=== PATIENT | female | born 1945 | race Caucasian/White ===

== ENCOUNTER → 2023-10-09 09:29 | Outpatient (REF) | payer OTHER, SELFPAY | LOC: RAD 09:29 | PROVIDERS: ATTENDING PHYSICIAN Family Medicine | DX: M25.562 Pain in left knee (principal) | CPT/HCPCS: 73564 ==

== ENCOUNTER 2025-03-19 12:25 | Emergency (ER) | payer OTHER, SELFPAY ==
[2025-03-19] VITALS (8 sets, daily range): BP systolic 165–187; BP diastolic 65–93
[2025-03-19 12:45] LABS: Hematocrit 39.7 % (37.0-47.0); Hemoglobin 12.7 g/dL (12.0-16.0); Mean Corp Hgb Conc. 32.0 g/dL (33.0-37.0); Mean Corpuscular Volume 87.3 fL (81.0-99.0); Nucleated Red Blood Cells % 0 %; Platelet Count 208 10^3/uL (130-400); Red Cell Dist. Width 13.3 % (11.5-14.5)
[2025-03-19 13:14] LABS: ALT (SGPT) 23 U/L (0-35); AST (SGOT) 30 U/L (14-36); Albumin 4.2 g/dl (3.5-5.0); Alkaline Phosphatase 103 U/L (38-126); Blood Urea Nitrogen 17 mg/dl (7-17); Calcium 9.3 mg/dl (8.4-10.2); Carbon Dioxide 26 mmol/L (22-30); Chloride 108 mmol/L (98-107); Glucose 95 mg/dl (70-99); Potassium 3.8 mmol/L (3.5-5.1); Sodium 141 mmol/L (135-145); Total Protein 7.2 g/dl (6.3-8.2); eGFR > 60.00
[2025-03-19 13:36] LABS: Troponin I 0.035 ng/ml
[2025-03-19] MEDS: NSS 500 IV (15:11)
--- NOTE | 2025-03-19 16:00 | ED.GENMED ---
History of Present Illness
<Stephenie Resendiz PA-C - Last Filed: 03/20/25 07:01>
General
Chief Complaint: Chest Pain
Source: patient
Exam Limitations: none
Time Seen by Provider: 03/19/25 14:03
Nursing documentation reviewed up to this point in time: agreed with
History of Present Illness
History of Present Illness:
Patient is an 79-year-old female with history hypertension, hyperlipidemia who presents to the emergency department for left scapular pain. Patient reports chronic left shoulder pain secondary to frozen shoulder/adhesive capsulitis. Over the past
4 weeks she has noticed increasing pain into her left scapular region and more recently into her left neck. She also has had intermittent pain in her left ear.
She was seen in urgent care facility earlier this week where a shoulder x-ray was performed which showed right no acute findings. However that she be concerned that this pain she is experiencing may be related to her heart prompting visit to the
emergency department today.
She denies any chest pain or shortness of breath. No exertional, pleuritic, or positional component to scapular pain. No associated lightheadedness, dizziness, diaphoresis
Patient has no known history of CAD. She does have a family history of cardiac problems.
She is not on any oral anticoagulation
Past History
<Stephenie Resendiz PA-C - Last Filed: 03/20/25 07:01>
Past History
ED Past Medical History: HTN and Hypercholesterolemia
ED Past Surgical History: and Gynecological (Hysterectomy)
Social History
Tobacco: Non-smoker
Alcohol: Occasional
Drug: None
Personal:
Living: with family
Review of Systems
<Stephenie Resendiz PA-C - Last Filed: 03/20/25 07:01>
Review of Systems
Allergies reviewed?: Yes
All Other Systems: ROS reviewed and negative except as documented in HPI and ROS
Phy Exam
<Stephenie Resendiz PA-C - Last Filed: 03/20/25 07:01>
Physical Exam
Physical Exam:
Vitals: Hypertensive, otherwise vital signs able. Afebrile
General: Patient is well appearing, no acute distress. Nontoxic appearing
Skin: Warm and dry, no rashes or lesions
Head: Normocephalic, atraumatic
Eyes: Sclera nonicteric. EOMs intact. No nystagmus.
Throat: Protecting airway
Neck: Normal ROM, no cervical spine tenderness, no meningismus
Cardiac: Regular rate and rhythm, no murmurs. 2+ palpable radial pulses bilaterally. No reproducible chest wall tenderness.
Pulm: Normal respiratory effort, no wheezes, rales, rhonchi heard on exam
Abdomen: Abdomen soft and nontender.
Extremities: No edema, erythema, or obvious deformity of left shoulder. Limited range of motion in left shoulder. Reproducible tenderness in left scapular region. No rash. 2+ palpable left radial and brachial pulses with normal capillary refill.
Neuro: AAOx3. Grossly intact.
Psychiatric: Normal affect.
Scores
<Stephenie Resendiz PA-C - Last Filed: 03/20/25 07:01>
Heart Score for Chest Pain Patients
STEMI patient?: Not applicable
Course
<Stephenie Resendiz PA-C - Last Filed: 03/20/25 07:01>
Orders/Labs/Results
Orders:
Orders
03/19/25 12:26
EKG [Electrocardiogram (*1)] Urgent
Reason for Study: Chest Pain
EKG- Treatment ONCE
03/19/25 12:39
Complete Blood Count/With Diff Urgent
Comprehensive Metabolic Panel Urgent
Troponin I Urgent
03/19/25 14:33
CT Chest/abd/pelvis Angio W/wo Urgent
Comment: discussed w/ attending
Reason For Exam: Left scapular pain; elevated trop
03/19/25 14:34
0.9% Sodium Chloride 500 ml [Nss] 500 ml IV BOLUS
03/19/25 15:40
Electrocardiogram (*1) Urgent
Reason for Study: Chest Pain
EKG- Treatment ONCE
03/19/25 16:14
Troponin I Urgent
03/19/25 17:40
Oxycodone [Roxicodone] 5 mg PO NOW STA
Abnormal Lab Results
03/19/25
12:39
MCHC 32.0 L g/dL
(33.0-37.0)
MPV 10.5 H fL
(7.4-10.4)
Chloride 108 H mmol/L
(98-107)
Troponin I 0.035 H* ng/ml
03/19/25 12:39
03/19/25 12:39
Vital Signs
Initial and Last Documented VS:
Initial Vital Signs
Temp Pulse Resp BP Pulse Ox
98.0 F 88 19 184/93 96
03/19/25 12:30 03/19/25 12:30 03/19/25 12:30 03/19/25 12:30 03/19/25 12:30
Last Documented Vital Signs
Temp Pulse Resp BP Pulse Ox
97.5 F 82 20 165/81 96
03/19/25 17:55 03/19/25 17:55 03/19/25 17:55 03/19/25 17:55 03/19/25 17:55
<Willian Barr DO - Last Filed: 03/19/25 17:55>
Orders/Labs/Results
Orders:
Orders
03/19/25 12:26
EKG [Electrocardiogram (*1)] Urgent
Reason for Study: Chest Pain
EKG- Treatment ONCE
03/19/25 12:39
Complete Blood Count/With Diff Urgent
Comprehensive Metabolic Panel Urgent
Troponin I Urgent
03/19/25 14:33
CT Chest/abd/pelvis Angio W/wo Urgent
Comment: discussed w/ attending
Reason For Exam: Left scapular pain; elevated trop
03/19/25 14:34
0.9% Sodium Chloride 500 ml [Nss] 500 ml IV BOLUS
03/19/25 15:40
Electrocardiogram (*1) Urgent
Reason for Study: Chest Pain
EKG- Treatment ONCE
03/19/25 16:14
Troponin I Urgent
03/19/25 17:40
Oxycodone [Roxicodone] 5 mg PO NOW STA
Abnormal Lab Results
03/19/25
12:39
MCHC 32.0 L g/dL
(33.0-37.0)
MPV 10.5 H fL
(7.4-10.4)
Chloride 108 H mmol/L
(98-107)
Troponin I 0.035 H* ng/ml
03/19/25 12:39
03/19/25 12:39
Vital Signs
Initial and Last Documented VS:
Initial Vital Signs
Temp Pulse Resp BP Pulse Ox
98.0 F 88 19 184/93 96
03/19/25 12:30 03/19/25 12:30 03/19/25 12:30 03/19/25 12:30 03/19/25 12:30
Last Documented Vital Signs
Temp Pulse Resp BP Pulse Ox
97.5 F 82 20 165/81 96
03/19/25 17:55 03/19/25 17:55 03/19/25 17:55 03/19/25 17:55 03/19/25 17:55
<Stephenie Resendiz PA-C - Last Filed: 03/20/25 07:01>
MDM/Problems Addressed
Differential Diagnosis Includes:
Not limited to: Frozen shoulder/adhesive capsulitis, acute coronary syndrome, pulmonary embolism, aortic dissection, muscular strain, etc.
MDM/Problems Addressed:
79-year-old female with a history of adhesive capsulitis of the left shoulder presents with acute on chronic left scapular pain radiating into the left side of the neck, ongoing for the past few weeks. Pain is not exertional, pleuritic, or
positional. No associated shortness of breath, chest pain, or known history of coronary artery disease.
On evaluation, vital signs are stable and physical exam is unremarkable. CBC and chemistry panels are within normal limits. Initial troponin was mildly elevated at 0.035 ng/mL. EKG showed normal sinus rhythm without evidence of acute ischemia or
arrhythmia. Given her age and atypical symptoms, a CTA dissection study was obtained and showed no acute pathology of the chest, abdomen, or pelvis.
Repeat troponin showed a slight decrease and is now within the upper limit of normal. Serial EKGs remained without acute changes. At no point did the patient develop chest pain or other concerning symptoms.
Given the atypical nature of her pain, the absence of associated symptoms, stable cardiac markers, and unremarkable imaging, suspicion for an acute cardiac process such as ACS is low. Symptoms are more consistent with musculoskeletal pain related to
chronic left shoulder pathology.
Patient remained clinically stable throughout her ED stay. She is felt to be safe for discharge with close outpatient follow-up. Will place her on the chest pain hotline to expedite cardiology evaluation. Strict return precautions were discussed in
detail. Patient evaluated with and case discussed with attending physician.
Chronic conditions affecting care:
Hypertension, hyperlipidemia
Acute Exacerbation and/or Progression of Chronic Illness:
Acutely hypertensive
<Stephenie Resendiz PA-C - Last Filed: 03/20/25 07:01>
*Radiology
Radiology exam reviewed: radiology read reviewed
*Pulse Oximetry
SaO2: 95
Oxygen Mode of Delivery: Room air
Patient hypoxic: no
*EKG
Interpreted by ED Provider?: Yes
EKG Intrepretation Date: 03/19/25
Interpretation: abnormal
Comparison EKG: no comparison EKG present
Heart Rate: 88
Rate: normal
Rhythm: sinus
[place]: normal axis
Interval: normal QT interval
QRS Pattern: normal QRS
Ischemia: no ischemia
*Program Scheduler Interpretation
Rate: normal
Interpretation: normal
Heart Rate: 88
Rhythm: sinus
*Critical Care Note
Total Time (30-74mins, 75-104mins- exclusive of procedures): Not Applicable
ED Attending Note
<Stephenie Resendiz PA-C - Last Filed: 03/20/25 07:01>
-
Portions of this chart may have been created with voice recognition software.� Occasional wrong word or��sound alike� substitutions may have occurred due to the inherent limitations of voice recognition software.
<Willian Barr DO - Last Filed: 03/19/25 17:55>
ED Attending Note
Patient seen and examined by attending physician: Yes
I performed the substantive portion of visit, reviewed & personally made and approve the management plan that is documented in note by myself or FERNANDA.: Yes
ED Attending Note:
I agree with Pamela's note
Patient presents complaining of left shoulder pain. Pain radiates to her neck at times. No shortness of breath. Patient states she has a history of adhesive capsulitis. She feels like the pain is increasing over time. She has an appoint with
Dr. Dyer coming up in about 10 days but that like she could not wait until then for pain control. No exertional component to her discomfort
General: Awake, Alert, Oriented X3. No acute distress.
Vitals: unremarkable
Head: Atraumatic
Eyes: Pupils equal, EOMI
Throat: Airway intact, no exudates
Neck: Trachea midline
Lungs: Clear and equal b/l
Heart: Regular rate, no murmurs
Abd: Soft, Nontender, No pulsatile mass
Neuro: Nonfocal
Skin: Warm, dry, no rash
Extremities: pulses equal b/l, no edema. Pain to palpation over the left shoulder. Pain with range of motion of the left shoulder
EKG shows no acute ischemic changes
First troponin is the slightest amount above the normal limit. Repeat troponin is lower but essentially unchanged. Her symptoms are very atypical. No ischemic changes on EKG. I think this is her baseline troponin. CT of the chest shows no
dissection or. 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 Will put her on the chest pain hotline but I do not believe she would benefit from hospitalization at this point.
Discharge Plan
Departure
Patient Disposition: Home (Routine Discharge)
Date of Disposition: 03/19/25
Time of Disposition: 17:34
Patient with high blood pressure during this ER visit?: Yes
Condition: Good
Discharge Problem:
Pain of left scapula, Chronic left shoulder pain
Instructions: Shoulder pain - ED (DC), Chest Pain DCA Follow Up, BLOOD PRESSURE
Prescriptions:
New
oxycodone 5 mg tablet
5 mg PO Q6H PRN (Reason: Pain) Qty: 10 0RF
No Action
meclizine 25 MG tablet
25 mg PO QIDPRN PRN (Reason: dizziness or nausea) Qty: 20 0RF
aspirin 81 mg Tablet,Delayed Release (Dr/Ec)
81 mg PO DAILY
lisinopril 10 mg Tablet
10 mg PO DAILY
Referrals:
Que Dyer MD [Active, Orthopedics] - Keep scheduled appt
Frances You MD [Family Provider, Family Practice]
Activity Restrictions/Additional Instructions:
RETURN TO THE EMERGENCY DEPARTMENT ANY INTRACTABLE PAIN, NUMBNESS/TINGLING IN LEFT UPPER EXTREMITY, CHEST PAIN, SHORTNESS OF BREATH/DIFFICULTY BREATHING, SEVERE BACK PAIN, WORSENING IN CURRENT SYMPTOMS, OR ANY OTHER CONCERNS
- As discussed�your EKGs showed no evidence of acute ischemia today in the emergency department. Your troponin value did trend down.
- The CT scan showed no acute abnormality in the chest, abdomen, or pelvis. You were noted to have a few lesions on your thyroid which should be followed up outpatient with an ultrasound. You were also found to have a small lesion on your left
kidney. You may require an outpatient MRI. Please follow these up with your primary care for further evaluation.
- We suspect that you are experiencing following your known frozen shoulder/adhesive capsulitis.
- However�please follow-up with cardiology closely for further evaluation/management to rule out any potential cardiac etiology. Contact information has been provided for you above.
- Continue to take Tylenol and/or Motrin as needed for pain. Prescription for oxycodone has been sent to your pharmacy which you can take for intractable pain. This may cause drowsiness you should not take prior to driving.
- Follow-up with orthopedics as scheduled
Monitor your symptoms closely and return to the emergency department with any acute worsening/new symptoms or any other concerns
Interventions
Interventions:
*Risk Screen - Suicide Last Done: 03/19/25 12:32
*General Assessment Last Done: 03/19/25 14:09
*Neglect/Abuse Screening Last Done: 03/19/25 12:32
*ED- Fall Risk Assessment Last Done: 03/19/25 14:09
*ED COVID-19 Vaccine History Last Done: 03/19/25 14:09
*ED Influenza Vaccine History Last Done: 03/19/25 14:09
*Nursing Disposition Last Done: 03/19/25 17:55
ED- Cardiac Assessment Last Done: 03/19/25 14:09
Discharge Date and Time
Discharge Date/Time: 03/19/25 18:08
Print Language: BAHAMIAN
[2025-03-19 16:50] LABS: Troponin I 0.027 ng/ml
[2025-03-19] MEDS: ROXICODONE 5 MG PO (17:56)
== END 2025-03-19 18:08 | disposition home or self-care (01) ==
LOC: EMR 12:25
PROVIDERS: Physician Assistant; Student in an Organized Health Care Education/Training Program; EMERGENCY PHYSICIAN Emergency Medicine; FAMILY PHYSICIAN Family Medicine
DX: G89.29 Other chronic pain (principal); M25.512 Pain in left shoulder; R07.89 Other chest pain; I10 Essential (primary) hypertension; E78.00 Pure hypercholesterolemia, unspecified; I44.0 Atrioventricular block, first degree; Z90.710 Acquired absence of both cervix and uterus
CPT/HCPCS: 99284; 96360; 71275; 74174; 80053; 84484; 85025; 93005; Q9967

== ENCOUNTER → 2025-03-29 06:53 | Outpatient (REF) | payer OTHER, SELFPAY | LOC: RCS 06:53 | PROVIDERS: ATTENDING PHYSICIAN Internal Medicine Interventional Cardiology; FAMILY PHYSICIAN Family Medicine | DX: I10 Essential (primary) hypertension (principal) | CPT/HCPCS: 93306 ==

== ENCOUNTER → 2025-04-08 10:49 | Outpatient (REF) | payer OTHER, SELFPAY | LOC: RAD 10:49 | PROVIDERS: ATTENDING PHYSICIAN Family Medicine | DX: E04.1 Nontoxic single thyroid nodule (principal) | CPT/HCPCS: 76536 ==

== ENCOUNTER → 2025-05-26 07:35 | Outpatient (REF) | payer OTHER, SELFPAY | LOC: PAVMRI 07:35 | PROVIDERS: ATTENDING PHYSICIAN Family Medicine | DX: N28.89 Other specified disorders of kidney and ureter (principal) | CPT/HCPCS: 74183; A9575 ==